=== PATIENT | female | born 1955 | race Caucasian/White ===

== ENCOUNTER 2024-03-24 14:49 | Outpatient (CLI) | payer OTHER | END 2024-03-24 23:59 | disposition home or self-care (01) | LOC: RAD 14:49 | PROVIDERS: ATTEND Family Medicine | DX: M43.16 Spondylolisthesis, lumbar region (principal); M47.814 Spondylosis without myelopathy or radiculopathy, thoracic region; M54.9 Dorsalgia, unspecified; I70.0 Atherosclerosis of aorta; W19.XXXD Unspecified fall, subsequent encounter | CPT/HCPCS: 72070; 72100 ==